=== PATIENT | male | born 1995 | race Caucasian/White ===

== ENCOUNTER 2019-06-26 14:04 | Emergency (ER) | payer OTHER ==
--- NOTE | 2019-06-26 14:21 | ER Document Report ---
ED Skin Rash/Insect Bite/Abscs - General Chief Complaint: Skin Sore(s) Stated Complaint: SKIN PROBLEM Time Seen by Provider: 06/26/19 14:20 Primary Care Provider: COLETTE LUNDBERG DO [ACTIVE STAFF] - Follow up in 1 week (for dermatology) TRAVEL OUTSIDE OF THE [place] IN LAST 30 DAYS: No - HPI Notes: 24 year old male to the ED with C/O several patches of itchy rash to the back of his neck and back of his arms for the past two weeks. Patient and state that they have tried benadryl without any relief. Denies new toiletries, new detergent, no soaps, no diet, other new exposure. He has not recently been traveling, Denies any sick contacts,. Denies any weeping or drainage from the sites. Has not seen PCP about it. No hx of eczema. Denies fevers, chills, or any other complaints. - Related Data Allergies/Adverse Reactions: No Known Allergies Allergy (Verified 06/26/19 14:07) Past Medical History - General Information source: Patient - Social History Smoking Status: Never Smoker Frequency of alcohol use: None Drug Abuse: None Family History: Reviewed & Not Pertinent Review of Systems - Review of Systems Constitutional: No symptoms reported EENT: No symptoms reported Cardiovascular: denies: Chest pain, Dyspnea, Lightheaded Respiratory: denies: Cough, Short of breath Gastrointestinal: denies: Abdominal pain, Diarrhea, Nausea, Vomiting Musculoskeletal: denies: No symptoms reported, Joint pain Skin: See HPI, Rash Hematologic/Lymphatic: No symptoms reported Neurological/Psychological: No symptoms reported -: Yes All other systems reviewed and negative Physical Exam - Vital signs Vitals: Temp Pulse Resp BP Pulse Ox 98.4 F 79 16 112/74 98 06/26/19 14:35 06/26/19 14:35 06/26/19 14:35 06/26/19 14:35 06/26/19 14:35 Interpretation: Normal - General General appearance: Appears well, Alert - HEENT Head: Normocephalic, Atraumatic Eyes: Normal Pupils: PERRL - Respiratory Respiratory status: No respiratory distress Chest status: Nontender Breath sounds: Normal Chest palpation: Normal - Cardiovascular Rhythm: Regular Heart sounds: Normal auscultation Murmur: No - Skin Skin Temperature: Warm Skin Moisture: Dry Skin irregularity: Rash - to the left elbow on the extensor surface and to the back of the neck there are two areas of scaling macules. they are predominantly erythematous in nature. There are no vesicles, no desquamation, they are not annular in appearance, there is no streaking lymphangitis. There is no blistering or sloughing of the skin. Slightly shiny/silvery appearance. Course - Re-evaluation Re-evalutation: Impression: Dermatitis. Will place on steroidal topical cream -- have him follow with derm for skin bx. Patient agrees with the plan. Urged to return if worsening rash. He agrees with the plan. - Vital Signs Vital signs: Temp Pulse Resp BP Pulse Ox 98.2 F 69 18 123/81 99 06/26/19 16:32 06/26/19 16:32 06/26/19 16:32 06/26/19 16:32 06/26/19 16:32 Discharge - Discharge Clinical Impression: Dermatitis Condition: Stable Disposition: HOME, SELF-CARE Instructions: Topical Steroid Cream or Ointment ([facility]) Additional Instructions: FOLLOW UP WITH [employer] [facility] WITHOUT FAIL. USE CREAM PRESCRIBED. RETURN IF WORSE. Prescriptions: Triamcinolone Acetonide [Aristocort 0.1% Ointment] 1 applic TP BID #15 gm Referrals: COLETTE LUNDBERG DO [ACTIVE STAFF] - Follow up in 1 week (for dermatology)
[2019-06-26 16:34] VITALS: BP 123/81
== END 2019-06-26 16:37 | disposition home or self-care (01) ==
LOC: ER 14:04
DX: L30.9 Dermatitis, unspecified (principal); R21 Rash and other nonspecific skin eruption
CPT/HCPCS: 99283